=== PATIENT | male | born 1985 | race Two or more races ===

== ENCOUNTER → 2017-04-27 | Emergency (ER) | payer OTHER ==
[~2017-04-27] VITALS: Ht 167.6 cm; Wt 90.7 kg
[~2017-04-27] MED LIST: CORTISONE25 MG PO; DEMEROL50 MG/ML; LOSARTAN-HCTZ1 EAC2 PO; MEDROLPACK PO; ORPH100T PO; PERCOCET 10-321 EACH; PERCOCET 5/3251 TAB; SYNTHROID100 MCG PO; TRAMADOL HCL50 MG; ULTRACET PO; ULTRAM50 MG PO
== END | disposition home or self-care (01) ==
LOC: ER 15:57
DX: E23.0 Hypopituitarism (principal); R64 Cachexia; R51 Headache

== ENCOUNTER 2017-05-04 19:56 | Emergency (ER) | payer OTHER ==
[~2017-05-04] VITALS: Ht 167.6 cm; Wt 90.7 kg
== END 2017-05-04 23:03 | disposition home or self-care (01) ==
LOC: ER 19:56
DX: G89.3 Neoplasm related pain (acute) (chronic) (principal); C75.1 Malignant neoplasm of pituitary gland; R51 Headache

== ENCOUNTER → 2017-05-11 | Emergency (ER) | payer OTHER ==
[~2017-05-11] VITALS: Ht 167.6 cm; Wt 90.7 kg
== END | disposition left against medical advice (07) ==
LOC: ER 14:10
DX: Z53.20 Procedure and treatment not carried out because of patient's decision for unspecified reasons (principal)

== ENCOUNTER 2017-05-13 12:57 | Emergency (ER) | payer OTHER ==
[~2017-05-13] VITALS: Ht 167.6 cm; Wt 90.7 kg
== END 2017-05-13 15:19 | disposition home or self-care (01) ==
LOC: ER 12:57
DX: R51 Headache (principal); C75.1 Malignant neoplasm of pituitary gland

== ENCOUNTER → 2017-06-01 | Emergency (ER) | payer OTHER ==
[~2017-06-01] VITALS: Ht 167.6 cm; Wt 93.0 kg
== END | disposition home or self-care (01) ==
LOC: ER 18:13
DX: R51 Headache (principal); C75.1 Malignant neoplasm of pituitary gland

== ENCOUNTER 2017-06-22 18:10 | Emergency (ER) | payer OTHER ==
[~2017-06-22] VITALS: Ht 167.6 cm; Wt 90.7 kg
== END 2017-06-22 22:27 | disposition home or self-care (01) ==
LOC: ER 18:10
DX: R51 Headache (principal)

== ENCOUNTER 2017-07-01 13:29 | Emergency (ER) | payer OTHER ==
[~2017-07-01] VITALS: Ht 167.6 cm; Wt 90.7 kg
[2017-07-01] MEDS ORDERED: CORTISONE25 MG (13:42)
== END 2017-07-01 14:39 | disposition home or self-care (01) ==
LOC: ER 13:29
DX: G89.29 Other chronic pain (principal); R51 Headache

== ENCOUNTER 2017-07-06 10:55 | Emergency (ER) | payer OTHER ==
[~2017-07-06] VITALS: Ht 167.6 cm; Wt 90.7 kg
[~2017-07-06 10:55] MED LIST changes: +CORTISONE25 MG
== END 2017-07-06 14:21 | disposition home or self-care (01) ==
LOC: ER 10:55
DX: R51 Headache (principal)

== ENCOUNTER → 2017-07-08 | Emergency (ER) | payer OTHER ==
[~2017-07-08] VITALS: Ht 167.6 cm; Wt 90.7 kg
== END | disposition left against medical advice (07) ==
LOC: ER 14:42
DX: Z53.20 Procedure and treatment not carried out because of patient's decision for unspecified reasons (principal)

== ENCOUNTER 2017-07-12 09:46 | Emergency (ER) | payer OTHER ==
[~2017-07-12] VITALS: Ht 167.6 cm; Wt 90.7 kg
== END 2017-07-12 10:43 | disposition home or self-care (01) ==
LOC: ER 09:46
DX: R51 Headache (principal)

== ENCOUNTER → 2017-07-29 | Emergency (ER) | payer OTHER | END | disposition left against medical advice (07) | LOC: ER 14:12 | DX: Z53.20 Procedure and treatment not carried out because of patient's decision for unspecified reasons (principal) ==

== ENCOUNTER → 2017-08-02 | Emergency (ER) | payer OTHER ==
[~2017-08-02] VITALS: Ht 167.6 cm; Wt 90.7 kg
== END | disposition left against medical advice (07) ==
LOC: ER 09:17
DX: Z53.20 Procedure and treatment not carried out because of patient's decision for unspecified reasons (principal)

== ENCOUNTER 2017-08-08 11:49 | Emergency (ER) | payer OTHER ==
[~2017-08-08] VITALS: Ht 167.6 cm; Wt 90.7 kg
== END 2017-08-08 13:36 | disposition home or self-care (01) ==
LOC: ER 11:49
DX: G89.28 Other chronic postprocedural pain (principal); R51 Headache

== ENCOUNTER → 2017-08-08 | Emergency (ER) | payer OTHER | END | disposition left against medical advice (07) | LOC: ER 18:12 | DX: Z53.20 Procedure and treatment not carried out because of patient's decision for unspecified reasons (principal) ==

== ENCOUNTER → 2017-08-20 | Emergency (ER) | payer OTHER ==
[~2017-08-20] VITALS: Ht 167.6 cm; Wt 90.7 kg
== END | disposition left against medical advice (07) ==
LOC: ER 07:14
DX: Z53.20 Procedure and treatment not carried out because of patient's decision for unspecified reasons (principal)

== ENCOUNTER → 2017-08-29 | Emergency (ER) | payer OTHER ==
[~2017-08-29] VITALS: Ht 167.6 cm; Wt 90.7 kg
== END | disposition left against medical advice (07) ==
LOC: ER 11:46
DX: R51 Headache (principal)

== ENCOUNTER → 2017-09-08 | Emergency (ER) | payer OTHER ==
[~2017-09-08] VITALS: Ht 170.2 cm; Wt 72.6 kg
== END | disposition left against medical advice (07) ==
LOC: ER 16:41
DX: Z53.20 Procedure and treatment not carried out because of patient's decision for unspecified reasons (principal)

== ENCOUNTER 2018-02-06 19:06 | Emergency (ER) | payer OTHER ==
[~2018-02-06] VITALS: Ht 167.6 cm; Wt 90.7 kg
== END 2018-02-06 21:07 | disposition home or self-care (01) ==
LOC: ER 19:06
DX: R51 Headache (principal)

== ENCOUNTER → 2018-02-10 | Emergency (ER) | payer OTHER ==
[~2018-02-10] VITALS: Ht 167.6 cm; Wt 90.7 kg
== END | disposition left against medical advice (07) ==
LOC: ER 10:36
DX: Z53.20 Procedure and treatment not carried out because of patient's decision for unspecified reasons (principal)

== ENCOUNTER 2018-03-03 12:36 | Emergency (ER) | payer OTHER ==
[~2018-03-03] VITALS: Ht 167.6 cm; Wt 90.7 kg
== END 2018-03-03 15:06 | disposition home or self-care (01) ==
LOC: ER 12:36
DX: R51 Headache (principal)

== ENCOUNTER → 2018-04-22 | Emergency (ER) | payer OTHER ==
[~2018-04-22] VITALS: Ht 167.6 cm; Wt 90.7 kg
== END | disposition left against medical advice (07) ==
LOC: ER 08:09
DX: G89.29 Other chronic pain (principal); R51 Headache

== ENCOUNTER 2018-09-28 09:23 | Emergency (ER) | payer OTHER ==
[~2018-09-28] VITALS: Ht 167.6 cm; Wt 90.7 kg
== END 2018-09-28 11:29 | disposition home or self-care (01) ==
LOC: ER 09:23
DX: R51 Headache (principal)

== ENCOUNTER 2018-10-17 10:15 | Emergency (ER) | payer OTHER ==
[~2018-10-17] VITALS: Ht 167.6 cm; Wt 90.7 kg
== END 2018-10-17 11:04 | disposition home or self-care (01) ==
LOC: ER 10:15
DX: R51 Headache (principal)

== ENCOUNTER → 2018-10-28 | Emergency (ER) | payer OTHER ==
[~2018-10-28] VITALS: Ht 167.6 cm; Wt 90.7 kg
== END | disposition left against medical advice (07) ==
LOC: ER 17:32
DX: R51 Headache (principal)

== ENCOUNTER 2018-11-08 10:06 | Emergency (ER) | payer OTHER ==
[~2018-11-08] VITALS: Ht 167.6 cm; Wt 90.7 kg
== END 2018-11-08 11:26 | disposition home or self-care (01) ==
LOC: ER 10:06
DX: G44.209 Tension-type headache, unspecified, not intractable (principal)

== ENCOUNTER → 2018-11-09 | Emergency (ER) | payer OTHER ==
[~2018-11-09] VITALS: Ht 167.6 cm; Wt 90.7 kg
== END | disposition left against medical advice (07) ==
LOC: ER 08:07
DX: Z53.20 Procedure and treatment not carried out because of patient's decision for unspecified reasons (principal)

== ENCOUNTER 2018-11-16 07:10 | Emergency (ER) | payer OTHER ==
[~2018-11-16] VITALS: Ht 167.6 cm; Wt 90.7 kg
== END 2018-11-16 09:48 | disposition home or self-care (01) ==
LOC: ER 07:10
DX: G44.89 Other headache syndrome (principal)

== ENCOUNTER 2018-11-23 10:12 | Emergency (ER) | payer OTHER ==
[~2018-11-23] VITALS: Ht 167.6 cm; Wt 90.7 kg
== END 2018-11-23 12:46 | disposition home or self-care (01) ==
LOC: ER 10:12
DX: G50.0 Trigeminal neuralgia (principal); D49.7 Neoplasm of unspecified behavior of endocrine glands and other parts of nervous system

== ENCOUNTER 2018-11-24 14:04 | Emergency (ER) | payer OTHER ==
[~2018-11-24] VITALS: Ht 167.6 cm; Wt 90.7 kg
== END 2018-11-24 16:08 | disposition home or self-care (01) ==
LOC: ER 14:04
DX: G50.0 Trigeminal neuralgia (principal)

== ENCOUNTER 2018-11-27 15:37 | Emergency (ER) | payer OTHER ==
[~2018-11-27] VITALS: Ht 167.6 cm; Wt 90.7 kg
== END 2018-11-28 02:43 | disposition home or self-care (01) ==
LOC: ER 15:37
DX: G50.0 Trigeminal neuralgia (principal); G44.89 Other headache syndrome; Z76.5 Malingerer [conscious simulation]

== ENCOUNTER → 2018-11-28 | Emergency (ER) | payer OTHER ==
[~2018-11-28] VITALS: Ht 167.6 cm; Wt 90.7 kg
== END | disposition home or self-care (01) ==
LOC: ER 01:12
DX: G50.0 Trigeminal neuralgia (principal)

== ENCOUNTER 2018-12-07 10:01 | Emergency (ER) | payer OTHER ==
[~2018-12-07] VITALS: Ht 167.6 cm; Wt 90.7 kg
== END 2018-12-07 14:20 | disposition home or self-care (01) ==
LOC: ER 10:01
DX: G50.0 Trigeminal neuralgia (principal)

== ENCOUNTER 2018-12-19 02:48 | Emergency (ER) | payer OTHER ==
[~2018-12-19] VITALS: Ht 167.6 cm; Wt 63.5 kg
== END 2018-12-19 05:17 | disposition home or self-care (01) ==
LOC: ER 02:48
DX: G50.0 Trigeminal neuralgia (principal)

== ENCOUNTER 2019-01-11 07:23 | Emergency (ER) | payer OTHER ==
[~2019-01-11] VITALS: Ht 167.6 cm; Wt 81.6 kg
== END 2019-01-11 12:01 | disposition home or self-care (01) ==
LOC: ER 07:23
DX: G44.89 Other headache syndrome (principal)

== ENCOUNTER → 2019-01-13 | Emergency (ER) | payer OTHER ==
[~2019-01-13] VITALS: Ht 167.6 cm; Wt 116.1 kg
== END | disposition left against medical advice (07) ==
LOC: ER 09:41
DX: Z53.20 Procedure and treatment not carried out because of patient's decision for unspecified reasons (principal)

== ENCOUNTER 2019-01-26 10:49 | Emergency (ER) | payer OTHER ==
[~2019-01-26] VITALS: Ht 167.6 cm; Wt 81.6 kg
== END 2019-01-26 12:27 | disposition home or self-care (01) ==
LOC: ER 10:49
DX: G50.0 Trigeminal neuralgia (principal)

== ENCOUNTER → 2019-02-08 | Emergency (ER) | payer OTHER | END | disposition left against medical advice (07) | LOC: ER 11:57 | DX: Z53.20 Procedure and treatment not carried out because of patient's decision for unspecified reasons (principal) ==

== ENCOUNTER 2019-03-02 08:45 | Emergency (ER) | payer OTHER ==
[~2019-03-02] VITALS: Ht 167.6 cm; Wt 81.6 kg
== END 2019-03-02 09:48 | disposition home or self-care (01) ==
LOC: ER 08:45
DX: R51 Headache (principal)

== ENCOUNTER → 2019-04-25 | Emergency (ER) | payer OTHER ==
[~2019-04-25] VITALS: Ht 167.6 cm; Wt 81.6 kg
== END | disposition left against medical advice (07) ==
LOC: ER 07:41
DX: Z53.20 Procedure and treatment not carried out because of patient's decision for unspecified reasons (principal)

== ENCOUNTER 2019-05-07 08:07 | Emergency (ER) | payer OTHER ==
[~2019-05-07] VITALS: Ht 167.6 cm; Wt 81.6 kg
[2019-05-07] MEDS ORDERED: RELPAX40 MG PO (10:26)
== END 2019-05-07 10:36 | disposition home or self-care (01) ==
LOC: ER 08:07
DX: G43.909 Migraine, unspecified, not intractable, without status migrainosus (principal)

== ENCOUNTER 2019-05-11 11:41 | Emergency (ER) | payer OTHER ==
[~2019-05-11] VITALS: Ht 167.6 cm; Wt 81.6 kg
[~2019-05-11 11:41] MED LIST changes: +RELPAX40 MG PO
== END 2019-05-11 13:44 | disposition home or self-care (01) ==
LOC: ER 11:41
DX: R51 Headache (principal)

== ENCOUNTER 2019-07-18 10:15 | Emergency (ER) | payer OTHER ==
[~2019-07-18] VITALS: Ht 167.6 cm; Wt 81.6 kg
[2019-07-18] MEDS ORDERED: PERCOCET 5-3251 EACH PO (10:47)
== END 2019-07-18 10:55 | disposition home or self-care (01) ==
LOC: ER 10:15
DX: R51 Headache (principal)

== ENCOUNTER 2019-08-08 08:02 | Emergency (ER) | payer OTHER ==
[~2019-08-08] VITALS: Ht 167.6 cm; Wt 81.6 kg
[~2019-08-08 08:02] MED LIST changes: +PERCOCET 5-3251 EACH PO
== END 2019-08-08 08:59 | disposition home or self-care (01) ==
LOC: ER 08:02
DX: R51 Headache (principal)

== ENCOUNTER 2019-08-10 11:30 | Emergency (ER) | payer OTHER ==
[~2019-08-10] VITALS: Ht 167.6 cm; Wt 81.6 kg
[2019-08-10] MEDS ORDERED: PERCOCET 5-3251 EACH PO (12:34)
== END 2019-08-10 13:17 | disposition home or self-care (01) ==
LOC: ER 11:30
DX: R51 Headache (principal)

== ENCOUNTER → 2019-08-13 | Emergency (ER) | payer OTHER ==
[~2019-08-13] VITALS: Ht 167.6 cm; Wt 81.6 kg
== END | disposition left against medical advice (07) ==
LOC: ER 10:24
DX: Z53.20 Procedure and treatment not carried out because of patient's decision for unspecified reasons (principal)

== ENCOUNTER 2019-08-22 08:42 | Emergency (ER) | payer OTHER ==
[~2019-08-22] VITALS: Ht 167.6 cm; Wt 81.6 kg
== END 2019-08-22 09:21 | disposition home or self-care (01) ==
LOC: ER 08:42
DX: G44.209 Tension-type headache, unspecified, not intractable (principal)

== ENCOUNTER 2019-08-24 07:41 | Emergency (ER) | payer OTHER ==
[~2019-08-24] VITALS: Ht 167.6 cm; Wt 81.6 kg
[2019-08-24] MEDS ORDERED: PERCOCET 5-3251 EACH PO (08:49)
== END 2019-08-24 09:00 | disposition home or self-care (01) ==
LOC: ER 07:41
DX: R51 Headache (principal)

== ENCOUNTER 2019-09-03 07:34 | Emergency (ER) | payer OTHER ==
[~2019-09-03] VITALS: Ht 167.6 cm; Wt 81.6 kg
== END 2019-09-03 09:06 | disposition home or self-care (01) ==
LOC: ER 07:34
DX: R51 Headache (principal)

== ENCOUNTER 2019-09-07 07:18 | Emergency (ER) | payer OTHER ==
[~2019-09-07] VITALS: Ht 167.6 cm; Wt 81.6 kg
== END 2019-09-07 09:09 | disposition home or self-care (01) ==
LOC: ER 07:18
DX: G89.29 Other chronic pain (principal); R51 Headache

== ENCOUNTER 2019-09-17 08:57 | Emergency (ER) | payer OTHER ==
[~2019-09-17] VITALS: Ht 198.1 cm; Wt 81.6 kg
== END 2019-09-17 09:42 | disposition home or self-care (01) ==
LOC: ER 08:57
DX: R51 Headache (principal)

== ENCOUNTER 2019-10-17 11:31 | Emergency (ER) | payer OTHER ==
[~2019-10-17] VITALS: Ht 167.6 cm; Wt 74.4 kg
[2019-10-17] MEDS ORDERED: PERCOCET 5-3251 EACH PO (14:13)
== END 2019-10-17 14:33 | disposition home or self-care (01) ==
LOC: ER 11:31
DX: R51 Headache (principal)

== ENCOUNTER 2019-11-14 07:35 | Emergency (ER) | payer OTHER ==
[~2019-11-14] VITALS: Ht 167.6 cm; Wt 81.6 kg
[2019-11-14] MEDS ORDERED: PERCOCET 5-3251 EACH PO (09:10)
== END 2019-11-14 09:20 | disposition home or self-care (01) ==
LOC: ER 07:35
DX: R51 Headache (principal)

== ENCOUNTER 2019-11-16 10:04 | Emergency (ER) | payer OTHER ==
[~2019-11-16] VITALS: Ht 167.6 cm; Wt 81.6 kg
[2019-11-16] MEDS ORDERED: PERCOCET 5-3251 EACH PO (14:18)
== END 2019-11-16 14:57 | disposition home or self-care (01) ==
LOC: ER 10:04
DX: R51 Headache (principal)

== ENCOUNTER 2019-11-20 06:05 | Emergency (ER) | payer OTHER ==
[~2019-11-20] VITALS: Ht 152.4 cm; Wt 81.6 kg
== END 2019-11-20 08:39 | disposition home or self-care (01) ==
LOC: ER 06:05
DX: R51 Headache (principal)

== ENCOUNTER → 2019-12-12 | Emergency (ER) | payer OTHER ==
[~2019-12-12] VITALS: Ht 167.6 cm; Wt 81.6 kg
== END | disposition home or self-care (01) ==
LOC: ER 08:03
DX: R51.9 Headache, unspecified (principal)

== ENCOUNTER 2019-12-28 00:24 | Emergency (ER) | payer OTHER ==
[~2019-12-28] VITALS: Ht 167.6 cm; Wt 68.0 kg
== END 2019-12-28 04:54 | disposition home or self-care (01) ==
LOC: ER 00:24
DX: G89.28 Other chronic postprocedural pain (principal); R51.9 Headache, unspecified

== ENCOUNTER 2020-01-04 06:59 | Emergency (ER) | payer OTHER ==
[~2020-01-04] VITALS: Ht 167.6 cm; Wt 81.6 kg
[2020-01-04] MEDS ORDERED: AMLODIPINE BESYL5 MG PO (07:50)
[2020-01-04] MEDS ORDERED: OMEPRAZOLE20 MG PO (07:50)
== END 2020-01-04 09:40 | disposition home or self-care (01) ==
LOC: ER 06:59
DX: G44.89 Other headache syndrome (principal)

== ENCOUNTER 2020-01-07 08:55 | Emergency (ER) | payer OTHER ==
[~2020-01-07] VITALS: Ht 167.6 cm; Wt 81.6 kg
[~2020-01-07 08:55] MED LIST changes: +AMLODIPINE BESYL5 MG PO; +OMEPRAZOLE20 MG PO
== END 2020-01-07 10:10 | disposition home or self-care (01) ==
LOC: ER 08:55
DX: G89.29 Other chronic pain (principal); R51.9 Headache, unspecified

== ENCOUNTER 2020-01-21 06:48 | Emergency (ER) | payer OTHER ==
[~2020-01-21] VITALS: Ht 167.6 cm; Wt 81.6 kg
[2020-01-21] MEDS ORDERED: PERCOCET 5-3251 EACH PO ×2 (08:51→08:54)
== END 2020-01-21 08:59 | disposition home or self-care (01) ==
LOC: ER 06:48
DX: R51.9 Headache, unspecified (principal)

== ENCOUNTER 2020-01-28 02:50 | Emergency (ER) | payer OTHER ==
[~2020-01-28] VITALS: Ht 167.6 cm; Wt 81.6 kg
[2020-01-28] MEDS ORDERED: NORVASC5 MG PO (04:18)
== END 2020-01-28 04:30 | disposition home or self-care (01) ==
LOC: ER 02:50
DX: R51.9 Headache, unspecified (principal)

== ENCOUNTER 2020-02-15 08:49 | Emergency (ER) | payer OTHER ==
[~2020-02-15] VITALS: Ht 167.6 cm; Wt 81.6 kg
[~2020-02-15 08:49] MED LIST changes: +NORVASC5 MG PO
== END 2020-02-15 14:06 | disposition left against medical advice (07) ==
LOC: ER 08:49
DX: R51.9 Headache, unspecified (principal)

== ENCOUNTER 2020-02-20 04:37 | Emergency (ER) | payer OTHER ==
[~2020-02-20] VITALS: Ht 167.6 cm; Wt 81.6 kg
== END 2020-02-20 06:50 | disposition left against medical advice (07) ==
LOC: ER 04:37
DX: R51.9 Headache, unspecified (principal)

== ENCOUNTER 2020-03-03 11:09 | Emergency (ER) | payer OTHER ==
[~2020-03-03] VITALS: Ht 167.6 cm; Wt 81.6 kg
[2020-03-03] MEDS ORDERED: PERCOCET 5-3251 EACH PO (12:37)
== END 2020-03-03 13:17 | disposition home or self-care (01) ==
LOC: ER 11:09
DX: G89.29 Other chronic pain (principal); R51.9 Headache, unspecified

== ENCOUNTER 2020-03-24 12:28 | Emergency (ER) | payer OTHER ==
[~2020-03-24] VITALS: Ht 167.6 cm; Wt 81.6 kg
[2020-03-24] MEDS ORDERED: PERCOCET 5-3251 EACH PO (13:34)
== END 2020-03-24 13:52 | disposition home or self-care (01) ==
LOC: ER 12:28
DX: R51.9 Headache, unspecified (principal)

== ENCOUNTER 2020-04-23 07:03 | Emergency (ER) | payer OTHER ==
[~2020-04-23] VITALS: Ht 167.6 cm; Wt 81.6 kg
[2020-04-23] MEDS ORDERED: PERCOCET 5-3251 EACH PO (08:05)
[2020-05-12] MEDS ORDERED: PERCOCET 5-3251 EACH PO ×2 (11:31→11:35)
== END 2020-04-23 08:30 | disposition home or self-care (01) ==
LOC: ER 07:03
DX: G44.89 Other headache syndrome (principal)

== ENCOUNTER → 2020-05-12 | Emergency (ER) | payer OTHER ==
[~2020-05-12] VITALS: Ht 167.6 cm; Wt 81.6 kg
== END | disposition home or self-care (01) ==
LOC: ER 10:46
DX: G44.89 Other headache syndrome (principal)

== ENCOUNTER 2020-05-26 09:54 | Emergency (ER) | payer OTHER ==
[~2020-05-26] VITALS: Ht 167.6 cm; Wt 81.6 kg
[2020-05-26] MEDS ORDERED: PERCOCET 5-3251 EACH PO (10:47)
== END 2020-05-26 11:28 | disposition home or self-care (01) ==
LOC: ER 09:54
DX: G89.29 Other chronic pain (principal); R51.9 Headache, unspecified

== ENCOUNTER 2020-05-28 10:15 | Emergency (ER) | payer OTHER ==
[~2020-05-28] VITALS: Ht 167.6 cm; Wt 81.6 kg
== END 2020-05-28 10:53 | disposition home or self-care (01) ==
LOC: ER 10:15
DX: G89.29 Other chronic pain (principal); G44.89 Other headache syndrome

== ENCOUNTER 2020-06-18 07:47 | Emergency (ER) | payer OTHER ==
[~2020-06-18] VITALS: Ht 167.6 cm; Wt 81.6 kg
== END 2020-06-18 08:58 | disposition home or self-care (01) ==
LOC: ER 07:47
DX: G89.29 Other chronic pain (principal); R51.9 Headache, unspecified

== ENCOUNTER → 2020-07-02 | Emergency (ER) | payer OTHER ==
[~2020-07-02] VITALS: Ht 167.6 cm; Wt 81.6 kg
== END | disposition left against medical advice (07) ==
LOC: ER 05:39
DX: Z53.20 Procedure and treatment not carried out because of patient's decision for unspecified reasons (principal)

== ENCOUNTER 2020-07-07 10:45 | Emergency (ER) | payer OTHER ==
[~2020-07-07] VITALS: Ht 167.6 cm; Wt 81.6 kg
[2020-07-07] MEDS ORDERED: PERCOCET 5-3251 EACH PO (13:27)
[2020-07-25] MEDS ORDERED: SYNTHROID75 MCG PO (08:33)
== END 2020-07-07 13:32 | disposition home or self-care (01) ==
LOC: ER 10:45
DX: G89.29 Other chronic pain (principal); G44.89 Other headache syndrome

== ENCOUNTER → 2020-07-25 | Emergency (ER) | payer OTHER ==
[~2020-07-25] VITALS: Ht 167.6 cm; Wt 81.6 kg
[~2020-07-25] MED LIST changes: +SYNTHROID75 MCG PO
== END | disposition left against medical advice (07) ==
LOC: ER 08:26
DX: G89.29 Other chronic pain (principal); G44.89 Other headache syndrome

== ENCOUNTER → 2020-07-30 | Emergency (ER) | payer OTHER ==
[~2020-07-30] VITALS: Ht 167.6 cm; Wt 81.6 kg
== END | disposition left against medical advice (07) ==
LOC: ER 07:30
DX: G89.29 Other chronic pain (principal); R51.9 Headache, unspecified

== ENCOUNTER 2020-08-02 09:35 | Emergency (ER) | payer OTHER ==
[~2020-08-02] VITALS: Ht 167.6 cm; Wt 81.6 kg
== END 2020-08-02 18:48 | disposition home or self-care (01) ==
LOC: ER 09:35
DX: G89.29 Other chronic pain (principal); R51.9 Headache, unspecified; D49.7 Neoplasm of unspecified behavior of endocrine glands and other parts of nervous system

== ENCOUNTER → 2020-08-16 | Emergency (ER) | payer OTHER ==
[~2020-08-16] VITALS: Ht 167.6 cm; Wt 81.6 kg
== END | disposition left against medical advice (07) ==
LOC: ER 09:21
DX: G44.89 Other headache syndrome (principal)

== ENCOUNTER 2020-08-18 07:22 | Emergency (ER) | payer OTHER ==
[~2020-08-18] VITALS: Ht 167.6 cm; Wt 81.6 kg
== END 2020-08-18 09:20 | disposition home or self-care (01) ==
LOC: ER 07:22
DX: G44.89 Other headache syndrome (principal)

== ENCOUNTER 2020-08-25 07:19 | Emergency (ER) | payer OTHER ==
[~2020-08-25] VITALS: Ht 167.6 cm; Wt 81.6 kg
== END 2020-08-25 13:02 | disposition left against medical advice (07) ==
LOC: ER 07:19
DX: R51.9 Headache, unspecified (principal)

== ENCOUNTER → 2020-10-02 | Emergency (ER) | payer OTHER ==
[~2020-10-02] VITALS: Ht 167.6 cm; Wt 81.6 kg
== END | disposition left against medical advice (07) ==
LOC: ER 07:17
DX: Z53.20 Procedure and treatment not carried out because of patient's decision for unspecified reasons (principal)

== ENCOUNTER 2020-12-19 22:39 | Emergency (ER) | payer OTHER ==
[~2020-12-19] VITALS: Ht 167.6 cm; Wt 81.6 kg
[2020-12-20] MEDS ORDERED: BENADRYL25 MG PO (01:40)
[2020-12-20] MEDS ORDERED: ACETAMINOPHEN650 M2 PO (01:40)
== END 2020-12-20 01:47 | disposition home or self-care (01) ==
LOC: ER 22:39
DX: G44.89 Other headache syndrome (principal)

== ENCOUNTER → 2021-01-15 | Emergency (ER) | payer OTHER ==
[~2021-01-15] VITALS: Ht 167.6 cm; Wt 81.6 kg
[~2021-01-15] MED LIST changes: +ACETAMINOPHEN650 M2 PO; +BENADRYL25 MG PO; +CORTISPORIN EAR10 M1 OPHT
== END | disposition left against medical advice (07) ==
LOC: ER 16:58
DX: G44.89 Other headache syndrome (principal)

== ENCOUNTER → 2021-01-16 | Emergency (ER) | payer OTHER ==
[~2021-01-16] VITALS: Ht 167.6 cm; Wt 81.6 kg
== END | disposition home or self-care (01) ==
LOC: ER 23:33
DX: R51.9 Headache, unspecified (principal); H60.8X1 Other otitis externa, right ear

== ENCOUNTER → 2021-01-30 | Emergency (ER) | payer OTHER ==
[~2021-01-30] VITALS: Ht 162.6 cm; Wt 74.8 kg
== END | disposition left against medical advice (07) ==
LOC: ER 22:15
DX: Z53.21 Procedure and treatment not carried out due to patient leaving prior to being seen by health care provider (principal)

== ENCOUNTER 2021-02-05 12:05 | Emergency (ER) | payer OTHER ==
[~2021-02-05] VITALS: Ht 167.6 cm; Wt 81.6 kg
== END 2021-02-05 14:43 | disposition left against medical advice (07) ==
LOC: ER 12:05
DX: G44.89 Other headache syndrome (principal)

== ENCOUNTER → 2022-01-30 | Emergency (ER) | payer OTHER | END | disposition left against medical advice (07) | LOC: ER 14:16 | DX: Z53.21 Procedure and treatment not carried out due to patient leaving prior to being seen by health care provider (principal) ==